=== PATIENT | female | born 1985 | race Caucasian/White ===

== ENCOUNTER 2024-08-07 08:12 | Emergency (ER) | payer MEDICAID, SELFPAY ==
--- NOTE | 2024-08-07 08:19 | ECG_ITS ---
[facility] Test Date: 2024-08-07 Pat Name: Tish Menjivar Department: Room: Gender: Female Research Advisor: : [id number] Requested By: Lamont Muniz Order Number: [id number] Bret MD: Paulette Franks M.D. Measurements Intervals Fowler Rate: 56 P: 48 IN: 129 QRS: 52 QRSD: 97 T: 19 QT: 406 QTc: 394 Interpretive Statements SINUS BRADYCARDIA No previous ECG available for comparison Electronically Signed On 08-07-2024 19:38:33 VISUAL STYLIST by Paulette Franks M.D. [id number] f
[2024-08-07 08:24] VITALS: BP 127/83; PULSE 56; RESP 18; TEMP 36.9; O2SAT 100; BMI 29.9
--- NOTE | 2024-08-07 08:34 | XR_ITS ---
WS: [id number] XR chest 1V portable [id number] REASON FOR EXAM: chest pain FINDINGS: Mild tortuosity of the thoracic aorta. The heart is at the upper limits of normal in size. Calcified granulomas disease bilaterally. No acute pulmonary parenchymal or pleural abnormality is identified. No significant abnormality of the bony thorax. XR/XR chest 1V portable [id number] IMPRESSION: No acute chest abnormality.
[2024-08-07 09:08] VITALS: PULSE 56; RESP 16; O2SAT 98
[2024-08-07 09:10] LABS: Basophils % 0.5 %; Eosinophils # 0.1 10^3/uL (0.0-0.8); Eosinophils % 1.9 %; Hematocrit 33.2 % (36-47); Lymphocytes # 1.2 10^3/uL (0.8-4.8); Lymphocytes % 29.7 %; Mean Corpuscular HGB Conc 29.5 g/dL (30-55); Mean Corpuscular Volume 74.4 fl (85-98); Mean Platelet Volume 9.3 fL (7.4-10.4); Monocytes # 0.2 10^3/uL (0.2-0.9); Neutrophils # 2.62 10^3/uL (1.8-7.7); Neutrophils % 62.7 %; Nucleated Red Blood Cells % 0 %; Platelet Count 326 10^3/cmm (157-399); Red Blood Count 4.46 10^6/uL (3.85-5.65); Red Cell Distribution Width 16.4 % (12.1-15.1); White Blood Count 4.18 10^3/uL (3.29-11.43)
[2024-08-07 09:29] LABS: Alanine Aminotransferase 37 U/L (0-33); Albumin Level 4.4 g/dL (3.5-5.2); Alkaline Phosphatase 74 U/L (35-105); Anion Gap 14.8 (5-19); Aspartate Amino Transferase 25 U/L (0-32); Blood Urea Nitrogen 14 mg/dL (6-20); Carbon Dioxide 26 mmol/L (22-29); Chloride 99 mmol/L (98-107); Creatinine Clr Calc Pharmacy 116.1406; Globulin 2.6 g/dL (1.3-4.6); Glomerular Filtration Rate 94.2 mL/min (90-130); Glucose 98 mg/dL (65-115); Osmolality Calculated 282 mOsm/kg (285-295); Potassium 3.8 mmol/L (3.5-5.1); Sodium 136 mmol/L (136-145); Total Bilirubin 0.3 mg/dL (0.15-1.2)
[2024-08-07 09:30] LABS: Troponin(5th) Baseline < 6 ng/L (0-10)
[2024-08-07 09:59] VITALS: BP 95/70; PULSE 54; RESP 16; O2SAT 97
--- NOTE | 2024-08-07 10:18 | ED_ITS ---
HPI - Chest Pain 2 General: Chief Complaint: Chest Pain Stated Complaint: chest pain Time Seen by Provider: 08/07/24 08:34 History of Present Illness: 38-year-old female non-smoker [facility] with intermittent left-sided chest discomfort and occasional left arm discomfort. Patient reports she started noticing it on Monday after drinking a red bull. She does drink coffee daily so she did not think the caffeine was to blame. It seems to be very random. It is not associated with breathing, movement, exertion, time of day, position. It is described as an ache when it occurs. At the time of examination, she has no discomfort. Patient denies any history of abnormal cholesterol, hypertension, diabetes, smoking. Her mom and dad both have hypertension. Patient reports several days ago she woke up and had some swelling in both of her lower extremities. It resolved that day. The night before she had had [place] food and thought it was just from eating too much salt. No history of DVT or PE. No dyspnea, diaphoresis, nausea, palpitations, syncope or presyncope. No known cardio pulmonary disease. Associated symptoms: Deny abdominal pain, dyspnea, fever(s), nausea, syncope or vomiting Related Data Home Medications Medication Instructions Recorded Confirmed No Known Home Medications 08/07/24 08/07/24 Allergies Allergy/AdvReac Type Severity Reaction Status Date / Time No Known Allergies Allergy Verified 08/07/24 08:30 Review of Systems 2 General: Reports: 10 or more systems reviewed and unremarkable except in HPI and below Const: Denies: fever(s), chills or body aches ENMT: Denies: throat pain Card: Denies: edema or syncope Resp: Denies: dyspnea or productive cough GI: Denies: abdominal pain, nausea, vomiting or diarrhea : Denies: flank pain, dysuria or urinary frequency Musc: Denies: neck pain, back pain or extremity pain Skin/Breast: Denies: rash or erythema Neuro: Denies: headache(s), numbness in extremities, weakness in extremities, lack of coordination or difficulty walking [facility] ED 2 Female Reproductive History: Date of last menstrual period: 08/04/24 Physical Exam 2 Narrative: EXAM NARRATIVE: Patient is well-appearing and nontoxic. Normal work of breathing. Regular rate most of the time but occasionally dips down into the 50s. Observed to be sinus bradycardia on the monitor. Extremities without any swelling, tenderness, redness. Oxygen saturation 99% on room air. Patient has a prominent sort of blowing sound over her mitral valve. This is borderline. Unclear to me whether this is pathologic or just at the upper limits of normal for physiologic. Explained this to the patient. Unclear clinical significance. Nonemergent echo follow-up recommended. Const: COMMON NORMALS: no limitations, alert and well nourished EXAM LIMITATIONS: no altered mental status HENMT: COMMON NORMALS: normocephalic, atraumatic and external ears normal H EAD & SCALP: normocephalic and atraumatic EXTERNAL EAR: Yes external ears normal MOUTH: no muffled voice Eye: COMMON NORMALS: EOMs intact bilaterally, conjunctivae normal and no scleral icterus CONJUNCTIVA: Yes conjunctivae normal Neck/C-Spine: COMMON NORMALS: no JVD GENERAL: Yes normal visual inspection and Yes trachea midline Resp: COMMON NORMALS: normal respiratory effort, No use of accessory muscles and clear to auscultation bilaterally AUSCULTATION: clear to auscultation bilaterally Cardio: COMMON NORMALS: no JVD, regular rate and regular rhythm RATE: r egular rate RHYTHM: regular rhythm GI: COMMON NORMALS: Soft to palpation and non-tender PALPATION: Yes Soft to palpation and No Guarding due to palpation present (GI) Extremity: COMMON NORMALS: normal to inspection Neuro: COMMON NORMALS: moves all extremities, no focal motor deficits and no sensory deficits noted SENSORIUM/ORIENTATION: Yes alert SPEECH: speech normal Psych: COMMON NORMALS: mental status grossly normal, Normal thought process present, cooperative, normal affect and speech normal SPEECH: Yes normal speech THOUGHT PROCESS: Normal thought process present Skin: COMMON NORMALS: no rashes or lesions noted, turgor normal and no jaundice GENERAL SKIN EXAM: no rashes or lesions noted and turgor normal Course 2 Vital Signs: Vital signs: Vital Signs Temperature 98.4 F 08/07/24 08:24 Pulse Rate 54 L 08/07/24 09:59 Respiratory Rate 16 08/07/24 09:59 Blood Pressure 95/70 08/07/24 09:59 Pulse Oximetry 97 08/07/24 09:59 Oxygen Delivery Me thod Room Air 08/07/24 08:24 MDM - Chest Pain Medical Decision Making Patient presents with intermittent aching left-sided chest discomfort. Overall her heart score is low. EKG was obtained at 819. EP interpretation shows a sinus bradycardia, rate 56, normal axis, QRS interval of 97 ms, no concerning ST segment depressions or elevations, no hyperacute T waves, no ectopy. Chest x-ray 1 view. EP interpretation. Normal cardiomediastinal silhouette. No signs of pneumothorax, effusions, infiltrates. No observed bony lesions. Blood work was reviewed and the patient is slightly anemic. We do not have anything to compare to. Patient tells me that she is chronically anemic ever since having her children. She does not know what her baseline level is but she doubts this is of any clinical significance today since it is known to be present for years. Troponin undetectably low. Explained limitations of this exam as well as its significance. No other significant findings on labs. Patient will be referred for primary care and cardiology follow-up. There was a questionable murmur over the mitral area. It would be reasonable to get a nonemergent echocardiogram for further evaluation. Patient provided with return precautions. I do not see any signs of pulmonary embolism, pneumonia, pneumothorax, effusions, decompensated heart failure and have low suspicion for any aortic aneurysm or dissection. At this time no evidence of any emergent condition requiring further ER workup or admission to the hospital. Lab Data 08/07/24 09:03 08/07/24 09:03 Radiology Impressions Chest X-Ray 08/07/24 08:34 IMPRESSION: No acute chest abnormality. Laboratory Results WBC 4.18 10^3/uL (3.29-11.43) 08/07/24 09:03 RBC 4.46 10^6/uL (3.85-5.65) 08/07/24 09:03 Hgb 9.80 g/dL (11.27-16.99) L 08/07/24 09:03 Hct 33.2 % (36-47) L 08/07/24 09:03 MCV 74.4 fl (85-98) L 08/07/24 09:03 MCH 22.0 pg (27-33) L 08/07/24 09:03 MCHC 29.5 g/dL (30-55) L 08/07/24 09:03 RDW 16.4 % (12.1-15.1) H 08/07/24 09:03 Plt Count 326 10^3/cmm (157-399) 08/07/24 09:03 MPV 9.3 fL (7.4-10.4) 08/07/24 09:03 Neut % (Auto) 62.7 % 08/07/24 09:03 Lymph % (Auto) 29.7 % 08/07/24 09:03 [place] % (Auto) 5.0 % 08/07/24 09:03 Eos % (Auto) 1.9 % 08/07/24 09:03 Baso % (Auto) 0.5 % 08/07/24 09:03 Neut # (Auto) 2.62 10^3/uL (1.8-7.7) 08/07/24 09:03 Lymph # (Auto) 1.2 10^3/uL (0.8-4.8) 08/07/24 09:03 [place] # (Auto) 0.2 10^3/uL (0.2-0.9) 08/07/24 09:03 Eos # (Auto) 0.1 10^3/uL (0.0-0.8) 08/07/24 09:03 Baso # (Auto) 0.0 10^3/uL (0.0-0.1) 08/07/24 09:03 Nucleated RBC % (auto) 0 % 08/07/24 09:03 Nucleated RBCs # 0.0 /100WBC 08/07/24 09:03 Sodium 136 mmol/L (136-145) 08/07/24 09:03 Potassium 3.8 mmol/L (3.5-5.1) 08/07/24 09:03 Chloride 99 mmol/L (98-107) 08/07/24 09:03 Carbon Dioxide 26 mmol/L (22-29) 08/07/24 09:03 Anion Gap 14.8 (5-19) 08/07/24 09:03 BUN 14 mg/dL (6-20) 08/07/24 09:03 Creatinine 0.7 mg/dL (0.5-0.9) 08/07/24 09:03 GFR Calculation 94.2 mL/min (90-130) 08/07/24 09:03 Glucose 98 mg/dL (65-115) 08/07/24 09:03 Calculated Osmolality 282 mOsm/kg (285-295) L 08/07/24 09:03 Calcium 9.0 mg/dL (8.5-10.5) 08/07/24 09:03 Total Bilirubin 0.3 mg/dL (0.15-1.2) 08/07/24 09:03 AST 25 U/L (0-32) 08/07/24 09:03 ALT 37 U/L (0-33) H 08/07/24 09:03 Alkaline Phosphatase 74 U/L (35-105) 08/07/24 09:03 Troponin T Baseline < 6 ng/L (0-10) 08/07/24 09:03 Total Protein 7.0 g/dL (6.6-8.7) 08/07/24 09:03 Albumin 4.4 g/dL (3.5-5.2) 08/07/24 09:03 Globulin 2.6 g/dL (1.3-4.6) 08/07/24 09:03 All radiology interpretation(s) finalized by discharge Discharge Plan Discharge Patient Disposition: Home Clinical Impression: Acute nonspecific chest pain with low risk of coronary artery disease, Bradycardia, sinus Condition: Stable Prescriptions: No Action No Known Home Medications Discharge Orders: Discharge ED (Routine); Ordered 08/07/24 Ordered By: Lamont Muniz Discharge Activity: Increase activity as tolerated Patient Instructions: Chest Pain (ED) Activity Restrictions/Additional Instructions: There are many potential causes for chest pain. You have a low risk for coronary artery disease based on assimilated data. Your cardiac troponin was normal. This means that you have not had a heart attack. You do not have any signs of heart failure. He did have a fairly prominent heart sound over your mitral valve. Please consider doing a nonemergent follow-up echocardiogram. Troponin tests, EKGs and chest x-rays cannot evaluate whether you have coronary artery disease. Even though you are low risk, it would be reasonable to follow- up with cardiology or primary care. If you continue to have symptoms, further investigations may be warranted. Return to the emergency department if you have significant shortness of breath, unexplained sweating, nausea, severe chest pressure or discomfort, passing out, palpitations, or other complications. Coding Level of Care Code ED Law Researcher for Lelia Wen
[2024-08-07 10:26] VITALS: BP 105/64; PULSE 56; O2SAT 97
--- NOTE | 2024-08-09 01:26 | DCPLANNER ---
Message sent to Cardiology -follow up with chest pain
--- NOTE | 2024-08-09 07:34 | DCPLANNER ---
messaged [facility]pf[facility] for er f/u
== END 2024-08-07 10:27 | disposition home or self-care (01) ==
PROVIDERS: Emergency Provider Emergency Medicine
DX: R07.89 Other chest pain (principal); R00.1 Bradycardia, unspecified
CPT/HCPCS: 36415; 71045; 80053; 84484; 85025; 93005; 99285

== ENCOUNTER 2025-07-18 12:27 | Outpatient (CLI) | payer MEDICAID, SELFPAY ==
--- NOTE | 2025-07-18 12:31 | MM_ITS ---
WS: [id number] BILATERAL 3D TOMOSYNTHESIS DIGITAL SCREENING MAMMOGRAPHY WITH CAD CLINICAL INFORMATION: SCREENING HISTORY: Screening mammogram. No current complaints. COMPARISON: Baseline TECHNIQUE: Bilateral CC and MLO views. FINDINGS: Scattered fibroglandular densities bilaterally. No suspicious focal mass, asymmetry, calcifications, or architectural distortion. No evidence of malignancy. MM/MM scr BI tomosynthesis [id number] IMPRESSION: DENSITY: There are scattered areas of fibroglandular density. BI-RADS: 1 - Negative. FOLLOW UP: 1 Year Follow-up Recommend return to annual screening mammography.
== END 2025-07-18 12:28 | disposition home or self-care (01) ==
LOC: RAD 12:27
PROVIDERS: PCP Physician Assistant; Visit Provider Physician Assistant
DX: Z12.31 Encounter for screening mammogram for malignant neoplasm of breast (principal); R92.323 Mammographic fibroglandular density, bilateral breasts
CPT/HCPCS: 77063; 77067